=== PATIENT | male | born 1950 | race Caucasian/White ===

== ENCOUNTER 2017-09-26 07:44 | Day surgery (SDC) | payer MEDICARE, OTHER ==
[2017-09-26] MEDS ORDERED: Lactated Ringers 1,000 ML IV SCH (07:45)
[2017-09-26] MEDS ORDERED: Sodium Chloride 0.9% 10 ML Syringe FLUSH PRN (07:45)
[2017-09-26] MEDS ORDERED: Propofol 200 MG/20 ML SDV IV ONE (08:45)
[2017-09-26] MEDS ORDERED: Midazolam 1 MG/ML 2 ML SDV IV ONE (08:45)
--- NOTE | 2017-09-26 09:16 | PCM.OPNOTE ---
- General Post-Op/Procedure Note Date of Surgery/Procedure: 09/26/17 Operative Procedure(s): c scope with bx Findings: transverse and descending colon polyp Pre Op Diagnosis: screening Post-Op Diagnosis: transverse and descending colon polyps Anesthesia Technique: MAC Primary Surgeon: Eduardo Jensen Anesthesia Provider: Marty Hamilton Pathology: transverse and descending colon polyp Complications: None Condition: Good Free Text/Narrative:: see dictation [id number]
--- NOTE | 2017-09-26 13:15 | OR ---
DATE OF OPERATION: 09/26/2017 SURGEON: Eduardo Jensen MD PROCEDURE PERFORMED: Colonoscopy with cold forceps biopsy. PREOPERATIVE DIAGNOSIS: Need for screening C-scope. POSTOPERATIVE DIAGNOSIS: Polyps of the transverse and descending colons. INDICATIONS FOR PROCEDURE: This is a 66-year-old white male who presents for screening colonoscopy. He was offered and accepted same. DESCRIPTION OF OPERATION: After an excellent IV sedation was administered, digital rectal exam was performed. No marked abnormality was noted. Flexible colonoscope was inserted and advanced without difficulty to the cecum. The prep was excellent. The following findings were noted. Ascending colon, unremarkable. Transverse colon, a small polypoid lesion consistent with hyperplasia, biopsied and sent for permanent. Descending colon, a small polyp, biopsied and sent for permanent. Sigmoid, unremarkable. Rectum and anus, unremarkable. Colon was deflated. The scope was removed. The patient tolerated the procedure well and was taken to Recovery in a good condition. Results by letter. /[id number] /[place]
== END 2017-09-26 10:00 | disposition home or self-care (01) ==
LOC: FB.SDS 07:44
PROVIDERS: ATTEND Surgery
DX: Z12.11 Encounter for screening for malignant neoplasm of colon (principal); D12.3 Benign neoplasm of transverse colon; D12.4 Benign neoplasm of descending colon; I10 Essential (primary) hypertension; E78.5 Hyperlipidemia, unspecified; F33.1 Major depressive disorder, recurrent, moderate; F41.1 Generalized anxiety disorder; Z79.899 Other long term (current) drug therapy
CPT/HCPCS: 00812; 45380; 88305; J2250; J2704; J7120

== ENCOUNTER 2018-06-23 10:45 | Inpatient (IN) | payer MEDICARE, BC ==
[2018-06-23] MEDS ORDERED: Meclizine 25 MG Tab PO STA (11:04)
--- NOTE | 2018-06-23 11:05 | EDM.PDOC ---
ED HPI GENERAL MEDICAL PROBLEM - General Stated Complaint: DIZZY,SOB Time Seen by Provider: 06/23/18 10:45 Source of Information: Reports: Patient, Family History Limitations: Reports: No Limitations - History of Present Illness INITIAL COMMENTS - FREE TEXT/NARRATIVE: 67 y.o.w.m with H/O HTN came back from vacation and felt extremely dizzy, unable to ambulate, it is worse when he turns his head to the left or right side. Pt denies trauma, He was drinking heavily while on vacation. No N/V/D no CP or any other acute medical issues. BP 174/79 RR 18 Pulse ox 99% on RA. pulse 61 Temp 36.4 Onset Date: 06/22/18 Onset Time: 18:00 Duration: Day(s):, Getting Worse, Intermittent Location: Reports: Head Severity: Moderate Improves with: Reports: Rest Worsens with: Reports: Movement Context: Reports: Other (Dizzy, unable to ambulate. ) Associated Symptoms: Reports: Malaise - Related Data Allergies Allergy/AdvReac Type Severity Reaction Status Date / Time No Known Allergies Allergy Verified 06/23/18 15:58 Home Meds: Home Meds Aspirin 81 mg PO BEDTIME 09/25/17 [History] Docusate Sodium [Colace] 100 mg PO BEDTIME 09/25/17 [History] Fexofenadine [Arin] 180 mg PO DAILY PRN 09/25/17 [History] Metoprolol Succinate [Toprol Xl] 25 mg PO BEDTIME 09/25/17 [History] Multivitamin with Minerals [Multiple Vitamin] 1 tab PO BEDTIME 09/25/17 [History ] [place]-3/DHA/Epa/Fish Oil [[place] 3 500 Softgel] 1,000 unit PO BEDTIME 09/25/17 [ History] Omeprazole 10 mg PO BEDTIME 09/25/17 [History] Simvastatin [Zocor] 40 mg PO BEDTIME 09/25/17 [History] Venlafaxine HCl [Venlafaxine ER] 150 mg PO BEDTIME 09/25/17 [History] Meloxicam 15 mg PO BEDTIME 06/23/18 [History] Meclizine [Antivert] 25 mg PO QID PRN #30 tablet 06/24/18 [Rx] Past Medical History HEENT History: Reports: None, Impaired Vision Cardiovascular History: Reports: Aneurysm, High Cholesterol, Hypertension, Other (See Below) Other Cardiovascular History: AORTIC VALVE DISORDER; AORTIC ANEURYSM Respiratory History: Reports: None Gastrointestinal History: Reports: None Genitourinary History: Reports: None DATABASE REPORT WRITER History: Reports: None Musculoskeletal History: Reports: Gout Neurological History: Reports: None Psychiatric History: Reports: Addiction, Anxiety Endocrine/Metabolic History: Reports: Obesity/BMI 30+ Hematologic History: Reports: None Immunologic History: Reports: None Oncologic (Cancer) History: Reports: Squamous Cell Carcinoma Dermatologic History: Reports: None - Past Surgical History Head Surgeries/Procedures: Reports: None HEENT Surgical History: Reports: None GI Surgical History: Reports: Colonoscopy Male Surgical History: Reports: None Endocrine Surgical History: Reports: None Neurological Surgical History: Reports: None Musculoskeletal Surgical History: Reports: None Oncologic Surgical History: Reports: None Dermatological Surgical History: Reports: None Social & Family History - Caffeine Use Caffeine Use: Reports: Coffee ED ROS GENERAL - Review of Systems Review Of Systems: See Below Constitutional: Reports: No Symptoms HEENT: Reports: No Symptoms Respiratory: Reports: No Symptoms Cardiovascular: Reports: No Symptoms Endocrine: Reports: No Symptoms GI/Abdominal: Reports: No Symptoms : Reports: No Symptoms Musculoskeletal: Reports: No Symptoms Skin: Reports: No Symptoms Neurological: Reports: Dizziness, Difficulty Walking Psychiatric: Reports: No Symptoms Hematologic/Lymphatic: Reports: No Symptoms Immunologic: Reports: No Symptoms ED EXAM, GENERAL - Physical Exam Exam: See Below Exam Limited By: No Limitations General Appearance: Alert, WD/WN, Obese Eye Exam: Left Eye: Nystagmus (lateral), Bilateral Eye: Normal Inspection Ears: Normal External Exam Ear Exam: Bilateral Ear: Auricle Normal Nose: Normal Inspection, Normal Mucosa, No Blood Throat/Mouth: Normal Lips, Normal Voice, No Airway Compromise, Other (dry mucosal membrane) Head: Atraumatic, Normocephalic Neck: Normal Inspection, Supple, Non-Tender, Full Range of Motion Respiratory/Chest: No Respiratory Distress, Lungs Clear, Normal Breath Sounds, No Accessory Muscle Use, Chest Non-Tender Cardiovascular: Normal Peripheral Pulses, Regular Rate, Rhythm, No Edema, No Gallop, No JVD, No Murmur, No Rub GI/Abdominal: Normal Bowel Sounds, Soft, Non-Tender, No Organomegaly, No Distention, No Abnormal Bruit, No Mass (Male) Exam: Deferred Rectal (Males) Exam: Deferred Back Exam: Normal Inspection, Full Range of Motion, Other Extremities: Normal Inspection, Normal Range of Motion Neurological: Alert, Oriented, CN II-XII Intact, Normal Cognition, Normal Gait Psychiatric: Normal Affect, Normal Mood Skin Exam: Warm, Dry, Intact, Normal Color Lymphatic: No Adenopathy EKG INTERPRETATION EKG Date: 06/23/18 Time: 10:50 Rhythm: NSR Rate (Beats/Min): 56 [place]: Normal P-Wave: Present QRS: Normal ST-T: Normal QT: Normal Comparison: NA - No Prior EKG Course - Vital Signs Text/Narrative:: 67 y.o.w.m with H/O HTN came back from vacation and felt extremely dizzy, unable to ambulate, it is worse when he turns his head to the left or right side. Pt denies trauma, He was drinking heavily while on vacation. No N/V/D no CP or any other acute medical issues. BP 174/79 RR 18 Pulse ox 99% on RA. pulse 61 Temp 36.4 PE: WNWDWM with dizziness, Vertigo, unable to ambulate Labs: Imaging: CT head: NAD, prominent lat ventricles Impression: Vertigo, dehydration, bradycardia, HTN, unable to ambulate. Tx: Antivert, NS, Hydralazine 1.45 pm Consultation: Dr. Buckley, Hospitalist, accepted the pt for admission Reexam: Stable Plan: Admit to [facility]. Last Recorded V/S: Last Vital Signs Temp 36.7 C 06/24/18 12:00 Pulse 52 L 06/24/18 12:00 Resp 20 06/24/18 12:00 BP 150/83 H 06/24/18 12:00 Pulse Ox 96 06/24/18 12:00 - Orders/Labs/Meds Labs: Laboratory Tests 06/23/18 06/23/18 06/23/18 Range/Units 11:10 11:10 11:10 WBC 6.6 (4.5-12.0) X10-3/uL RBC 4.14 L (4.30-5.75) x10(6)uL Hgb 13.7 (11.5-15.5) g/dL Hct 40.9 (30.0-51.3) % MCV 98.9 H (80-96) fL MCH 33.2 (27.7-33.6) pg MCHC 33.6 (32.2-35.4) g/dL RDW 13.8 (11.5-15.5) % Plt Count 225 (125-369) X10(3)uL MPV 8.5 (7.4-10.4) fL Neut % (Auto) 65.1 (46-82) % Lymph % (Auto) 17.6 (13-37) % [place] % (Auto) 10.5 (4-12) % Eos % (Auto) 6 H (1.0-5.0) % Baso % (Auto) 1 (0-2) % Neut # (Auto) 4.3 (1.6-8.3) # Lymph # (Auto) 1.2 (0.6-5.0) # [place] # (Auto) 0.7 (0.0-1.3) # Eos # (Auto) 0.4 (0.0-0.8) # Baso # (Auto) 0.0 (0.0-0.2) # PT 9.4 (8.7-11.1) INR 0.97 (0.89-1.13) Sodium 140 (135-145) mmol/L Potassium 5.1 (3.5-5.3) mmol/L Chloride 106 (100-110) mmol/L Carbon Dioxide 27 (21-32) mmol/L BUN 16 (7-18) mg/dL Creatinine 1.1 (0.70-1.30) mg/dL Est Cr Clr Drug Dosing TNP Estimated GFR (MDRD) > 60 (>60) BUN/Creatinine Ratio 14.5 (9-20) Glucose 102 (80-116) mg/dL Calcium 9.0 (8.6-10.2) mg/dL Troponin I (<0.017-0.056) ng/mL 06/23/18 Range/Units 11:10 WBC (4.5-12.0) X10-3/uL RBC (4.30-5.75) x10(6)uL Hgb (11.5-15.5) g/dL Hct (30.0-51.3) % MCV (80-96) fL MCH (27.7-33.6) pg MCHC (32.2-35.4) g/dL RDW (11.5-15.5) % Plt Count (125-369) X10(3)uL MPV (7.4-10.4) fL Neut % (Auto) (46-82) % Lymph % (Auto) (13-37) % [place] % (Auto) (4-12) % Eos % (Auto) (1.0-5.0) % Baso % (Auto) (0-2) % Neut # (Auto) (1.6-8.3) # Lymph # (Auto) (0.6-5.0) # [place] # (Auto) (0.0-1.3) # Eos # (Auto) (0.0-0.8) # Baso # (Auto) (0.0-0.2) # PT (8.7-11.1) INR (0.89-1.13) Sodium (135-145) mmol/L Potassium (3.5-5.3) mmol/L Chloride (100-110) mmol/L Carbon Dioxide (21-32) mmol/L BUN (7-18) mg/dL Creatinine (0.70-1.30) mg/dL Est Cr Clr Drug Dosing Estimated GFR (MDRD) (>60) BUN/Creatinine Ratio (9-20) Glucose (80-116) mg/dL Calcium (8.6-10.2) mg/dL Troponin I < 0.017 L (<0.017-0.056) ng/mL Meds: Medications Discontinued Medications Generic Name Dose Route Start Last Admin Trade Name Stevenq PRN Reason Stop Dose Admin Acetaminophen 650 mg 06/23/18 13:57 06/23/18 21:17 Tylenol PO 650 mg Q4H PRN Administration Pain (Mild 1-3)/fever Aspirin 81 mg 06/23/18 21:00 06/23/18 21:12 Halfprin PO 81 mg BEDTIME CINDY Administration Docusate Sodium 100 mg 06/23/18 21:00 06/23/18 21:12 Colace PO 100 mg BEDTIME CINDY Administration Enoxaparin Sodium 40 mg 06/23/18 14:00 06/23/18 18:03 Lovenox SUBCUT 40 mg Q24H CINDY Administration Gadoteridol 20 ml 06/24/18 10:00 06/24/18 10:21 Prohance IV 20 ml . DIRECTED CINDY Administration Hydralazine HCl 10 mg 06/23/18 12:45 06/23/18 13:01 Apresoline IVPUSH 06/23/18 12:46 10 mg ONETIME STA Administration Hydroxyzine Pamoate 50 mg 06/23/18 21:38 06/23/18 22:04 Vistaril PO 50 mg Q6H PRN Administration Itching Sodium Chloride 1,000 mls @ 999 mls/hr 06/23/18 11:59 06/23/18 12:12 Normal Saline IV 06/23/18 12:59 999 mls/hr .BOLUS ONE Administration Meclizine HCl 50 mg 06/23/18 11:04 06/23/18 11:09 Antivert PO 06/23/18 11:05 50 mg ONETIME STA Administration Meclizine HCl 25 mg 06/23/18 17:00 06/24/18 09:28 Antivert PO 25 mg QID CINDY Administration Metoprolol Succinate 25 mg 06/23/18 21:00 06/23/18 21:13 Toprol Xl PO 25 mg BEDTIME CINDY Administration Non-Formulary Medication 10 mg 06/24/18 09:00 Omeprazole [Omeprazole] PO DAILY CINDY Ondansetron HCl 4 mg 06/23/18 13:57 Zofran Odt PO Q4H PRN nausea, able to take PO Ondansetron HCl 4 mg 06/23/18 13:57 Zofran IV Q4H PRN Nausea/Vomiting Pantoprazole Sodium 40 mg 06/23/18 22:00 06/23/18 22:04 Protonix PO 40 mg QPM@2100 CINDY Administration Simvastatin 40 mg 06/23/18 21:00 06/23/18 21:13 Zocor PO 40 mg BEDTIME CINDY Administration Sodium Chloride 10 ml 06/23/18 13:57 Saline Flush FLUSH ASDIRECTED PRN Keep Vein Open Venlafaxine HCl 150 mg 06/23/18 21:00 06/23/18 22:04 Effexor Xr PO 150 mg BEDTIME CINDY Administration Departure - Departure Time of Disposition: 16:00 Disposition: Admitted As Inpatient 65 Condition: Fair Clinical Impression: Vertigo
[2018-06-23] MEDS ORDERED: Sodium Chloride 0.9% 1,000 ML IV ONE (11:59)
[2018-06-23] MEDS ORDERED: hydrALAZINE 20 MG/ML SDV IVPUSH STA (12:45)
[2018-06-23] MEDS ORDERED: Ondansetron 4 MG/2 ML SDV IV PRN (13:57)
[2018-06-23] MEDS ORDERED: Sodium Chloride 0.9% 10 ML Syringe FLUSH PRN (13:57)
[2018-06-23] MEDS ORDERED: Ondansetron 4 MG Tab.DIS PO PRN (13:57)
[2018-06-23] MEDS ORDERED: Acetaminophen 325 MG Tab PO PRN (13:57)
[2018-06-23] MEDS ORDERED: Enoxaparin 40 MG/0.4 ML Syringe SUBCUT SCH (14:00)
--- NOTE | 2018-06-23 15:38 | PCM.HP ---
H&P History of Present Illness - General Date of Service: 06/23/18 Admit Problem/Dx: Admission Diagnosis/Problem Admission Diagnosis/Problem Nystagmus Source of Information: Patient, Family, Old Records, Provider History Limitations: Reports: No Limitations - History of Present Illness Initial Comments - Free Text/Narative: Patient is a 67-year-old male who has been in very good health up until last night, the night prior to admission, when he just didn't feel himself. He felt like he was more off-balance than usual. He felt like he was going to fall over. He felt lightheaded and dizzy. He did not feel like she was going to pass out. 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 He went to bed and this morning woke up feeling fine but when he went to get out of bed and to go to the bathroom he again felt fuzzy and lightheaded like he was going to fall over. He continued to feel off all morning and finally came into the emergency department for further evaluation. He's had no headache, no chest pain or shortness of breath, no nausea or vomiting with this, no diarrhea. It doesn't really feel like the room is spinning around him. He has noticed a little pain in his left shoulder on and off for the past couple of days but that has not really been associated with the dizziness. He's had a stiff neck for about the last 18 months to wear it when he turns very far to either side he has discomfort in his neck but this is not new and has not changed. He's had no colds or coughs within the last couple of weeks but last week did have a granddaughter who lives with him sick with a viral pharyngitis. He presented to the emergency department where he was found to have horizontal nystagmus and a blood pressure in the 170s systolic. He was given a dose of hydralazine which brought his pressure down nicely into the 140s but did not change his symptoms at all. Head CT was negative. I was asked to admit the patient for further evaluation and treatment. The patient has been doing a lot of shoveling over the past 3 days and hasn't had any symptoms of dizziness, lightheadedness, or chest pain or shortness of breath with this. Past medical history: #1 history of thoracic aortic aneurysm with ascending aortic dilation and mild aortic insufficiency. Follows with Dr. Mari Connor for this. Last echocardiogram 07/31/17 showed ejection fraction 65%, mild aortic regurgitation, dilation of the sinus 43 mm and dilation of the ascending aorta measuring 45 mm. Grade 1 left ventricular diastolic dysfunction. They were told by Dr. Connor that until it gets above 50 that surgery would not be indicated. #2 hypertension #3, hyperlipidemia #4 depression and anxiety #5 alcohol abuse as listed on the patient's problem list from the clinic. The patient denies ever going through treatment. He continues to drink. He does tell me he has been told in the past to stop drinking but has not done so. 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 Patient has residual balance issues and a left foot drag from the neurologic damage done by this episode. 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 He is and his is also a teacher. They live here in [place]. He is a nonsmoker. Drinks 2-3 beers a day and his last drink was on Sunday the . He had no drinks yesterday and hasn't had anything to drink today. He denies any symptoms of alcohol withdrawal or alcohol seizures in the past. He has 2 children, a son who has depression and a daughter who lives with him and his who has a history of addiction, bipolar disorder and ADHD. There are 2 grandchildren also lives with them and they are 12 and 10. Family history: The patient's mother at 93 and a senior living of old age. The patient's father at 87 of a blood infection after he had a boil lanced on his back. He has one brother who has depression. He has 2 sisters with bipolar disorder and one had colon cancer. The other has a history of osteoporosis. - Related Data Allergies/Adverse Reactions: Allergies Allergy/AdvReac Type Severity Reaction Status Date / Time No Known Allergies Allergy Verified 09/26/17 08:20 Home Medications: Home Meds Aspirin 81 mg PO DAILY 09/25/17 [History] Celecoxib 200 mg PO DAILY 09/25/17 [History] Docusate Sodium [Colace] 100 mg PO DAILY 09/25/17 [History] Fexofenadine [Arin] 180 mg PO DAILY PRN 09/25/17 [History] Metoprolol Succinate [Toprol Xl] 25 mg PO DAILY 09/25/17 [History] Multivitamin with Minerals [Multiple Vitamin] 1 tab PO DAILY 09/25/17 [History] Bee-3/DHA/Epa/Fish Oil [Bee 3 500 Softgel] 1,000 unit PO DAILY 09/25/17 [ History] Omeprazole 10 mg PO DAILY 09/25/17 [History] Simvastatin [Zocor] 40 mg PO DAILY 09/25/17 [History] Venlafaxine HCl [Venlafaxine ER] 150 mg PO SUMOWEFR 09/25/17 [History] Past Medical History HEENT History: Reports: None, Impaired Vision Cardiovascular History: Reports: Aneurysm, High Cholesterol, Hypertension, Other (See Below) Other Cardiovascular History: AORTIC VALVE DISORDER; AORTIC ANEURYSM Respiratory History: Reports: None Gastrointestinal History: Reports: None Genitourinary History: Reports: None [employer] History: Reports: None Musculoskeletal History: Reports: Gout Neurological History: Reports: None Psychiatric History: Reports: Addiction, Anxiety Endocrine/Metabolic History: Reports: Obesity/BMI 30+ Hematologic History: Reports: None Immunologic History: Reports: None Oncologic (Cancer) History: Reports: Squamous Cell Carcinoma Dermatologic History: Reports: None - Past Surgical History Head Surgeries/Procedures: Reports: None HEENT Surgical History: Reports: None GI Surgical History: Reports: Colonoscopy Male Surgical History: Reports: None Endocrine Surgical History: Reports: None Neurological Surgical History: Reports: None Musculoskeletal Surgical History: Reports: None Oncologic Surgical History: Reports: None Dermatological Surgical History: Reports: None Social & Family History - Caffeine Use Caffeine Use: Reports: Coffee H&P Review of Systems - Review of Systems: Review Of Systems: ROS reveals no pertinent complaints other than HPI. Exam - Exam Exam: See Below - Vital Signs Vital Signs: Last Vital Signs Temp 36.4 C 06/23/18 10:45 Pulse 61 06/23/18 10:45 Resp 16 06/23/18 13:01 BP 171/87 H 06/23/18 13:01 Pulse Ox 99 06/23/18 10:45 - Exam General: Alert, Oriented, Cooperative HEENT: PERRLA, Conjunctiva Clear, EACs Clear, EOMI, Mucosa Moist & [place], Posterior Pharynx Clear, TMs Clear, Other (horizontal nystagmus present bilaterally and symmetrically. Slow phase is to the right (left beating nystagmus). Doesn't change with head position.) Neck: Supple, Trachea Midline Lungs: Clear to Auscultation, Normal Respiratory Effort Cardiovascular: Regular Rate, Regular Rhythm, Normal S1, Normal S2, Bradycardia GI/Abdominal Exam: Normal Bowel Sounds, Soft, Non-Tender, No Distention Back Exam: Normal Inspection, Full Range of Motion Extremities: No Pedal Edema Neurological: Cranial Nerves Intact, Babinski Absent, Other (Patient has a slight left foot droop and weakness compared to the right which he notes is baseline. He cannot walk heel-to-toe which is also baseline for him. Proprioception intact but unable to stand with eyes closed. ) Neuro Extensive - Mental Status: Alert, Oriented x3, Normal Cognition, Memory Intact - Patient Data Lab Results Last 24 hrs: Laboratory Results - last 24 hr 06/23/18 06/23/18 06/23/18 Range/Units 11:10 11:10 11:10 WBC 6.6 (4.5-12.0) X10-3/uL RBC 4.14 L (4.30-5.75) x10(6)uL Hgb 13.7 (11.5-15.5) g/dL Hct 40.9 (30.0-51.3) % MCV 98.9 H (80-96) fL MCH 33.2 (27.7-33.6) pg MCHC 33.6 (32.2-35.4) g/dL RDW 13.8 (11.5-15.5) % Plt Count 225 (125-369) X10(3)uL MPV 8.5 (7.4-10.4) fL Neut % (Auto) 65.1 (46-82) % Lymph % (Auto) 17.6 (13-37) % [place] % (Auto) 10.5 (4-12) % Eos % (Auto) 6 H (1.0-5.0) % Baso % (Auto) 1 (0-2) % Neut # (Auto) 4.3 (1.6-8.3) # Lymph # (Auto) 1.2 (0.6-5.0) # [place] # (Auto) 0.7 (0.0-1.3) # Eos # (Auto) 0.4 (0.0-0.8) # Baso # (Auto) 0.0 (0.0-0.2) # PT 9.4 (8.7-11.1) INR 0.97 (0.89-1.13) Sodium 140 (135-145) mmol/L Potassium 5.1 (3.5-5.3) mmol/L Chloride 106 (100-110) mmol/L Carbon Dioxide 27 (21-32) mmol/L BUN 16 (7-18) mg/dL Creatinine 1.1 (0.70-1.30) mg/dL Est Cr Clr Drug Dosing TNP Estimated GFR (MDRD) > 60 (>60) BUN/Creatinine Ratio 14.5 (9-20) Glucose 102 (80-116) mg/dL Calcium 9.0 (8.6-10.2) mg/dL Troponin I (<0.017-0.056) ng/mL 06/23/18 Range/Units 11:10 WBC (4.5-12.0) X10-3/uL RBC (4.30-5.75) x10(6)uL Hgb (11.5-15.5) g/dL Hct (30.0-51.3) % MCV (80-96) fL MCH (27.7-33.6) pg MCHC (32.2-35.4) g/dL RDW (11.5-15.5) % Plt Count (125-369) X10(3)uL MPV (7.4-10.4) fL Neut % (Auto) (46-82) % Lymph % (Auto) (13-37) % [place] % (Auto) (4-12) % Eos % (Auto) (1.0-5.0) % Baso % (Auto) (0-2) % Neut # (Auto) (1.6-8.3) # Lymph # (Auto) (0.6-5.0) # [place] # (Auto) (0.0-1.3) # Eos # (Auto) (0.0-0.8) # Baso # (Auto) (0.0-0.2) # PT (8.7-11.1) INR (0.89-1.13) Sodium (135-145) mmol/L Potassium (3.5-5.3) mmol/L Chloride (100-110) mmol/L Carbon Dioxide (21-32) mmol/L BUN (7-18) mg/dL Creatinine (0.70-1.30) mg/dL Est Cr Clr Drug Dosing Estimated GFR (MDRD) (>60) BUN/Creatinine Ratio (9-20) Glucose (80-116) mg/dL Calcium (8.6-10.2) mg/dL Troponin I < 0.017 L (<0.017-0.056) ng/mL Result Diagrams: 06/23/18 11:10 06/23/18 11:10 - Problem List (1) Nystagmus SNOMED Code(s): 200318 ICD Code: H55.00 - UNSPECIFIED NYSTAGMUS Status: Acute Current Visit: Yes Problem Details: Jerk nystagmus with jerk beat to the left. Possible etiologies would include peripheral vestibular lesions or a central lesion. Given the recent exposure to a viral illness, certainly possible this is a viral neuritis. I would like to get an MRI in the morning to rule out anything more serious and for the time being will treat symptoms with meclizine which was very effective for the patient's symptoms in the emergency department. (2) Hypertension SNOMED Code(s): 14559480 ICD Code: I10 - ESSENTIAL (PRIMARY) HYPERTENSION Status: Acute Current Visit: Yes Problem Details: Although blood pressure was quite high when patient presented, it's now in the 140s systolic. Orthostatics showed a blood pressure of 145/87 lying, 147/84 sitting, 149/92 standing. Pulses were 52, 56, and 66 respectively. Continue home dose beta yaima and add OLIVER inhibitor if needed for better blood pressure control. (3) Depression with anxiety SNOMED Code(s): 67846910, 198822154 ICD Code: F41.8 - OTHER SPECIFIED ANXIETY DISORDERS Status: Acute Current Visit: Yes Problem Details: Continue home meds. (4) History of alcohol abuse SNOMED Code(s): 976563432 ICD Code: Z87.898 - PERSONAL HISTORY OF OTHER SPECIFIED CONDITIONS Status: Acute Current Visit: Yes Problem Details: Encouraged patient to stop drinking. He does have a chronic fine tremor of the hands which I feel would be better assessed the patient had not had any alcohol consumption for a couple of weeks to see if this might resolve. Monitor for symptoms of withdrawal. (5) DVT prophylaxis SNOMED Code(s): 693708616, 788975013 ICD Code: [id number] - Status: Acute Current Visit: Yes Problem Details: SCDs, Lovenox. Problem List Initiated/Reviewed/Updated: Yes Orders Last 24hrs: Active Orders 24 hr Category Date Time Status Patient Status [ADT] Routine ADT 06/23/18 13:57 Active Height and Weight [RC] DAILY Care 06/23/18 13:57 Active Intake and Output [RC] QSHIFT Care 06/23/18 13:58 Active Notify Provider Vital Signs [RC] ASDIRECTED Care 06/23/18 13:58 Active Orthostatic Vital Signs [RC] ASDIRECTED Care 06/23/18 15:21 Ordered Oxygen Therapy [RC] PRN Care 06/23/18 13:57 Active Up With Assistance [RC] ASDIRECTED Care 06/23/18 13:57 Active VTE/DVT Education [RC] Per Unit Routine Care 06/23/18 13:57 Active Vital Signs [RC] Q4H Care 06/23/18 13:57 Active 2 Gram Sodium Diet [DIET] Diet 06/23/18 Breakfast Ordered Consistent Carbohydrate Diet [DIET] Diet 06/23/18 Breakfast Ordered CXR [Chest 1V Frontal] [CR] Stat Exams 06/23/18 10:58 Taken Head wo Cont [CT] Stat Exams 06/23/18 11:58 Taken CBC WITH AUTO DIFF [HEME] AM Lab 06/24/18 05:11 Ordered COMPREHENSIVE METABOLIC PN,CMP [CHEM] AM Lab 06/24/18 05:11 Ordered Acetaminophen [Tylenol] Med 06/23/18 13:57 Active 650 mg PO Q4H PRN Enoxaparin [Lovenox] Med 06/23/18 14:00 Active 40 mg SUBCUT Q24H Ondansetron [Zofran ODT] Med 06/23/18 13:57 Active 4 mg PO Q4H PRN Ondansetron [Zofran] Med 06/23/18 13:57 Active 4 mg IV Q4H PRN Sodium Chloride 0.9% [Saline Flush] Med 06/23/18 13:57 Active 10 ml FLUSH ASDIRECTED PRN Antiembolic Hose [OM.PC] Per Unit Routine Oth 06/23/18 13:58 Ordered Peripheral IV Insertion Adult [OM.PC] Routine Oth 06/23/18 13:57 Ordered Sequential Compression Device [OM.PC] Per Unit Routine Oth 06/23/18 13:58 Ordered EKG 12 Lead [EK] Routine Ther 06/23/18 11:04 Ordered Medication Orders Acetaminophen (Tylenol) 650 mg PO Q4H PRN PRN Reason: Pain (Mild 1-3)/fever Enoxaparin Sodium (Lovenox) 40 mg SUBCUT Q24H CINDY Ondansetron HCl (Zofran Odt) 4 mg PO Q4H PRN PRN Reason: nausea, able to take PO Ondansetron HCl (Zofran) 4 mg IV Q4H PRN PRN Reason: Nausea/Vomiting Sodium Chloride (Saline Flush) 10 ml FLUSH ASDIRECTED PRN PRN Reason: Keep Vein Open Assessment/Plan Comment:: Status discussed with the patient and his at length. At this point, if the patient did have his heart stop beating or he were to stop breathing, he would want CPR done to try to resuscitate him. Thus the patient is full code.
[2018-06-23] MEDS: Meclizine 25 MG Tab PO SCH ×2 (18:03→22:03)
[2018-06-23] MEDS ORDERED: Simvastatin 40 MG Tab PO SCH (21:00)
[2018-06-23] MEDS ORDERED: Aspirin 81 MG Tab.EC PO SCH (21:00)
[2018-06-23] MEDS ORDERED: Metoprolol Succinate 25 MG Tab.ER PO SCH (21:00)
[2018-06-23] MEDS ORDERED: Venlafaxine 150 MG Cap.ER PO SCH (21:00)
[2018-06-23] MEDS ORDERED: Docusate Sodium 100 MG Cap PO SCH (21:00)
[2018-06-23] MEDS ORDERED: Pantoprazole 40 MG Tab.CR PO SCH (22:00)
--- NOTE | 2018-06-24 08:46 | PCM.PN ---
- General Info Date of Service: 06/24/18 Subjective Update: Patient is a 67-year-old male currently on hospital day #2 for vertigo and nystagmus. The patient, after taking meclizine yesterday, had almost complete resolution of his symptoms. He feels almost back to normal. A little bit of a headache last night which went away with Tylenol. No nausea or vomiting, no chest pain or shortness of breath. He was bradycardic into the 40s overnight but no symptoms with this. Pressures continue to run high in the 150 systolic overnight. - Patient Data Vitals - Most Recent: Last Vital Signs Temp 36.4 C 06/24/18 05:30 Pulse 50 L 06/24/18 05:30 Resp 16 06/24/18 05:30 BP 114/84 06/24/18 05:30 Pulse Ox 98 06/24/18 05:30 Orthostatic Blood Pressure [ 149/92 Standing] Orthostatic Blood Pressure [ 147/84 Sitting] Orthostatic Blood Pressure [ 145/87 Supine] Weight - Most Recent: 103.646 kg I&O - Last 24 Hours: Intake & Output 06/23/18 06/24/18 06/24/18 22:59 06:59 14:59 Intake Total 600 Output Total 1225 200 Balance -625 -200 Lab Results Last 24 Hours: Laboratory Results - last 24 hr 06/23/18 06/23/18 06/23/18 Range/Units 11:10 11:10 11:10 WBC 6.6 (4.5-12.0) X10-3/uL RBC 4.14 L (4.30-5.75) x10(6)uL Hgb 13.7 (11.5-15.5) g/dL Hct 40.9 (30.0-51.3) % MCV 98.9 H (80-96) fL MCH 33.2 (27.7-33.6) pg MCHC 33.6 (32.2-35.4) g/dL RDW 13.8 (11.5-15.5) % Plt Count 225 (125-369) X10(3)uL MPV 8.5 (7.4-10.4) fL Neut % (Auto) 65.1 (46-82) % Lymph % (Auto) 17.6 (13-37) % [place] % (Auto) 10.5 (4-12) % Eos % (Auto) 6 H (1.0-5.0) % Baso % (Auto) 1 (0-2) % Neut # (Auto) 4.3 (1.6-8.3) # Lymph # (Auto) 1.2 (0.6-5.0) # [place] # (Auto) 0.7 (0.0-1.3) # Eos # (Auto) 0.4 (0.0-0.8) # Baso # (Auto) 0.0 (0.0-0.2) # PT 9.4 (8.7-11.1) INR 0.97 (0.89-1.13) Sodium 140 (135-145) mmol/L Potassium 5.1 (3.5-5.3) mmol/L Chloride 106 (100-110) mmol/L Carbon Dioxide 27 (21-32) mmol/L BUN 16 (7-18) mg/dL Creatinine 1.1 (0.70-1.30) mg/dL Est Cr Clr Drug Dosing TNP Estimated GFR (MDRD) > 60 (>60) BUN/Creatinine Ratio 14.5 (9-20) Glucose 102 (80-116) mg/dL Calcium 9.0 (8.6-10.2) mg/dL Total Bilirubin (0.1-1.3) mg/dL AST (5-25) IU/L ALT (12-36) U/L Alkaline Phosphatase (56-112) IU/L Troponin I (<0.017-0.056) ng/mL Total Protein (6.0-8.0) g/dL Albumin (3.2-4.6) g/dL Globulin g/dL Albumin/Globulin Ratio 06/23/18 06/24/18 06/24/18 Range/Units 11:10 06:40 06:40 WBC 5.9 (4.5-12.0) X10-3/uL RBC 4.08 L (4.30-5.75) x10(6)uL Hgb 13.2 (11.5-15.5) g/dL Hct 38.7 (30.0-51.3) % MCV 94.8 (80-96) fL MCH 32.4 (27.7-33.6) pg MCHC 34.2 (32.2-35.4) g/dL RDW 14.1 (11.5-15.5) % Plt Count 214 (125-369) X10(3)uL MPV 8.2 (7.4-10.4) fL Neut % (Auto) 58.6 (46-82) % Lymph % (Auto) 21.1 (13-37) % [place] % (Auto) 12.6 H (4-12) % Eos % (Auto) 7 H (1.0-5.0) % Baso % (Auto) 1 (0-2) % Neut # (Auto) 3.5 (1.6-8.3) # Lymph # (Auto) 1.3 (0.6-5.0) # [place] # (Auto) 0.7 (0.0-1.3) # Eos # (Auto) 0.4 (0.0-0.8) # Baso # (Auto) 0.0 (0.0-0.2) # PT (8.7-11.1) INR (0.89-1.13) Sodium 141 (135-145) mmol/L Potassium 4.2 (3.5-5.3) mmol/L Chloride 108 (100-110) mmol/L Carbon Dioxide 25 (21-32) mmol/L BUN 16 (7-18) mg/dL Creatinine 1.0 (0.70-1.30) mg/dL Est Cr Clr Drug Dosing 73.00 Estimated GFR (MDRD) > 60 (>60) BUN/Creatinine Ratio 16.0 (9-20) Glucose 96 (80-116) mg/dL Calcium 8.9 (8.6-10.2) mg/dL Total Bilirubin 0.7 (0.1-1.3) mg/dL AST 25 (5-25) IU/L ALT 40 H (12-36) U/L Alkaline Phosphatase 61 (56-112) IU/L Troponin I < 0.017 L (<0.017-0.056) ng/mL Total Protein 6.4 (6.0-8.0) g/dL Albumin 3.2 (3.2-4.6) g/dL Globulin 3.2 g/dL Albumin/Globulin Ratio 1.0 Med Orders - Current: Current Medications Acetaminophen (Tylenol) 650 mg PO Q4H PRN PRN Reason: Pain (Mild 1-3)/fever Last Admin: 06/23/18 21:17 Dose: 650 mg Aspirin (Halfprin) 81 mg PO BEDTIME [facility] Last Admin: 06/23/18 21:12 Dose: 81 mg Docusate Sodium (Colace) 100 mg PO BEDTIME [facility] Last Admin: 06/23/18 21:12 Dose: 100 mg Enoxaparin Sodium (Lovenox) 40 mg SUBCUT Q24H [facility] Last Admin: 06/23/18 18:03 Dose: 40 mg Hydroxyzine Pamoate (Vistaril) 50 mg PO Q6H PRN PRN Reason: Itching Last Admin: 06/23/18 22:04 Dose: 50 mg Meclizine HCl (Antivert) 25 mg PO QID [facility] Last Admin: 06/23/18 22:03 Dose: 25 mg Metoprolol Succinate (Toprol Xl) 25 mg PO BEDTIME [facility] Last Admin: 06/23/18 21:13 Dose: 25 mg Ondansetron HCl (Zofran Odt) 4 mg PO Q4H PRN PRN Reason: nausea, able to take PO Ondansetron HCl (Zofran) 4 mg IV Q4H PRN PRN Reason: Nausea/Vomiting Pantoprazole Sodium (Protonix) 40 mg PO QPM@2100 [facility] Last Admin: 06/23/18 22:04 Dose: 40 mg Simvastatin (Zocor) 40 mg PO BEDTIME [facility] Last Admin: 06/23/18 21:13 Dose: 40 mg Sodium Chloride (Saline Flush) 10 ml FLUSH ASDIRECTED PRN PRN Reason: Keep Vein Open Venlafaxine HCl (Effexor Xr) 150 mg PO BEDTIME [facility] Last Admin: 06/23/18 22:04 Dose: 150 mg Discontinued Medications Hydralazine HCl (Apresoline) 10 mg IVPUSH ONETIME STA Stop: 06/23/18 12:46 Last Admin: 06/23/18 13:01 Dose: 10 mg Sodium Chloride (Normal Saline) 1,000 mls @ 999 mls/hr IV .BOLUS ONE Stop: 06/23/18 12:59 Last Admin: 06/23/18 12:12 Dose: 999 mls/hr Meclizine HCl (Antivert) 50 mg PO ONETIME STA Stop: 06/23/18 11:05 Last Admin: 06/23/18 11:09 Dose: 50 mg Non-Formulary Medication (Omeprazole [Omeprazole]) 10 mg PO DAILY CINDY - Exam General: Alert, Oriented, Cooperative, No Acute Distress HEENT: Pupils Equal, Pupils Reactive, EOMI, Other (Continues to have persistent horizontal jerk nystagmus but much milder than yesterday.) Lungs: Clear to Auscultation, Normal Respiratory Effort Cardiovascular: Regular Rate, Regular Rhythm, No Murmurs GI/Abdominal Exam: Normal Bowel Sounds, Soft, Non-Tender Extremities: No Pedal Edema Psy/Mental Status: Alert - Problem List & Annotations (1) Nystagmus SNOMED Code(s): 342298 Code(s): H55.00 - UNSPECIFIED NYSTAGMUS Status: Acute Current Visit: Yes Annotation/Comment:: Jerk nystagmus with jerk beat to the left. Anticipate discharge after MRI results this afternoon as given the improvement in his symptoms I suspect this was viral mediated. It's also possible that he's had mild nystagmus since his encephalitis and this is really not a new finding for him but has never been mentioned before. (2) Hypertension SNOMED Code(s): 12355137 Code(s): I10 - ESSENTIAL (PRIMARY) HYPERTENSION Status: Acute Current Visit: Yes Annotation/Comment:: Would recommend adding OLIVER inhibitor therapy for better blood pressure control the outpatient setting. This was discussed with patient and his at length. (3) Depression with anxiety SNOMED Code(s): 82102536, 433664064 Code(s): F41.8 - OTHER SPECIFIED ANXIETY DISORDERS Status: Acute Current Visit: Yes Annotation/Comment:: Continue home meds. (4) History of alcohol abuse SNOMED Code(s): 399554789 Code(s): Z87.898 - PERSONAL HISTORY OF OTHER SPECIFIED CONDITIONS Status: Acute Current Visit: Yes Annotation/Comment:: Encouraged patient to stop drinking. Monitor for symptoms of withdrawal. (5) DVT prophylaxis SNOMED Code(s): 870566966, 320974170 Code(s): SMK4715 - Status: Acute Current Visit: Yes Annotation/Comment :: SCDs, Lovenox. - Problem List Review Problem List Initiated/Reviewed/Updated: Yes - My Orders Last 24 Hours: My Active Orders 06/23/18 13:57 Patient Status [ADT] Routine Height and Weight [RC] 06 Oxygen Therapy [RC] PRN Up With Assistance [RC] 09,13,17,21 Vital Signs [RC] 04,08,12,16,20,00 Acetaminophen [Tylenol] 650 mg PO Q4H PRN Ondansetron [Zofran ODT] 4 mg PO Q4H PRN Ondansetron [Zofran] 4 mg IV Q4H PRN Sodium Chloride 0.9% [Saline Flush] 10 ml FLUSH ASDIRECTED PRN Peripheral IV Insertion Adult [OM.PC] Routine 06/23/18 13:58 Intake and Output [RC] 06,14,22 Notify Provider Vital Signs [RC] ASDIRECTED Antiembolic Hose [OM.PC] Per Unit Routine Sequential Compression Device [OM.PC] Per Unit Routine 06/23/18 14:00 Enoxaparin [Lovenox] 40 mg SUBCUT Q24H 06/23/18 15:21 Orthostatic Vital Signs [RC] ASDIRECTED 06/23/18 15:51 Code Status [Resuscitation Status] Routine 06/23/18 17:00 Meclizine [Antivert] 25 mg PO QID 06/23/18 21:00 Aspirin [Halfprin] 81 mg PO BEDTIME Docusate Sodium [Colace] 100 mg PO BEDTIME Metoprolol Succinate [Toprol XL] 25 mg PO BEDTIME Simvastatin [Zocor] 40 mg PO BEDTIME Venlafaxine [Effexor XR] 150 mg PO BEDTIME 06/23/18 22:00 Pantoprazole [ProTONIX] 40 mg PO QPM@2100 06/24/18 05:11 Brain w wo Cont [MR] AM - Plan Plan:: Status discussed with the patient and his at length on admission. At this point, if the patient did have his heart stop beating or he were to stop breathing, he would want CPR done to try to resuscitate him. Thus the patient is full code.
[2018-06-24] MEDS ORDERED: Non-Formulary Medication 1 Each (Omeprazole [Omeprazole] 10 MG) PO SCH (09:00)
[2018-06-24] MEDS: Meclizine 25 MG Tab PO SCH (09:28)
[2018-06-24] MEDS ORDERED: Gadoteridol 279.3 MG/ML 20 ML SDV IV SCH (10:00)
--- NOTE | 2018-06-24 10:33 | CR ---
INDICATION: Dizzy. CHEST: A single AP upright view of the chest was obtained portable, 06/23/18 - no comparisons. The heart appeared enlarged. The aorta is tortuous. Overlying EKG leads are noted. An active infiltrate or effusion was not identified. There is evidence of exogenous obesity. IMPRESSION: 1. No acute process. 2. ASHD. 3. Exogenous obesity. MTDD
--- NOTE | 2018-06-24 12:55 | PCM.DCSUM1 ---
Discharge Summary - Hospital Course Free Text/Narrative:: Date of admission: 06/23/18 Date of discharge: 06/24/18 Admission diagnosis: Vertigo with horizontal jerk nystagmus Discharge diagnosis: Same Consults: None Procedures: Head CT was negative MRI done the day of discharge showed mild chronic small vessel ischemic change and appropriate for age generalized parenchymal volume loss. No acute intracranial findings identified. History of present illness: Patient is a 67-year-old male who has been in very good health up until the night prior to admission, when he just didn't feel himself. He felt like he was more off-balance than usual. He felt like he was going to fall over. He felt lightheaded and dizzy. He did not feel like she was going to pass out. 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 He went to bed and am of admission woke up feeling fine but when he went to get out of bed and to go to the bathroom he again felt fuzzy and lightheaded like he was going to fall over. He continued to feel off all morning and finally came into the emergency department for further evaluation. He's had no headache, no chest pain or shortness of breath, no nausea or vomiting with this, no diarrhea. It doesn't really feel like the room is spinning around him. He has noticed a little pain in his left shoulder on and off for the past couple of days but that has not really been associated with the dizziness. He's had a stiff neck for about the last 18 months to wear it when he turns very far to either side he has discomfort in his neck but this is not new and has not changed. He's had no colds or coughs within the last couple of weeks but last week did have a granddaughter who lives with him sick with a viral pharyngitis. He presented to the emergency department where he was found to have horizontal nystagmus and a blood pressure in the 170s systolic. He was given a dose of hydralazine which brought his pressure down nicely into the 140s but did not change his symptoms at all. Head CT was negative. I was asked to admit the patient for further evaluation and treatment. Past medical history: #1 history of thoracic aortic aneurysm with ascending aortic dilation and mild aortic insufficiency. Follows with Dr. Mari Connor for this. Last echocardiogram 07/31/17 showed ejection fraction 65%, mild aortic regurgitation, dilation of the sinus 43 mm and dilation of the ascending aorta measuring 45 mm. Grade 1 left ventricular diastolic dysfunction. They were told by Dr. Connor that until it gets above 50 that surgery would not be indicated. #2 hypertension #3, hyperlipidemia #4 depression and anxiety #5 alcohol abuse as listed on the patient's problem list from the clinic. The patient denies ever going through treatment. He continues to drink. He does tell me he has been told in the past to stop drinking but has not done so. 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 Patient has residual balance issues and a left foot drag from the neurologic damage done by this episode. #7 gout Hospital course: Patient's symptoms almost completely resolved with meclizine. He was stable throughout hospitalization. Of note blood pressures did run a little high 150s systolic and in the 40s HR overnight. Please see progress note for condition on the day of discharge from the same date. Diagnosis: Stroke: No - Discharge Data Discharge Date: 06/24/18 Discharge Disposition: Home, Self-Care 01 Condition: Stable - Discharge Diagnosis/Problem(s) (1) Nystagmus SNOMED Code(s): 679870 ICD Code: H55.00 - UNSPECIFIED NYSTAGMUS Status: Acute Current Visit: Yes Problem Details: Jerk nystagmus with jerk beat to the left. Negative MRI. I suspect this was viral mediated. It's also possible that he's had mild nystagmus since his encephalitis and this is really not a new finding for him but has never been mentioned before. D/C on meclizine prn for vertigo. (2) Hypertension SNOMED Code(s): 28018313 ICD Code: I10 - ESSENTIAL (PRIMARY) HYPERTENSION Status: Acute Current Visit: Yes Problem Details: Would recommend adding OLIVER inhibitor therapy for better blood pressure control the outpatient setting. This was discussed with patient and his at length. (3) Depression with anxiety SNOMED Code(s): 85961232, 528833403 ICD Code: F41.8 - OTHER SPECIFIED ANXIETY DISORDERS Status: Acute Current Visit: Yes Problem Details: Continue home meds. (4) History of alcohol abuse SNOMED Code(s): 965162665 ICD Code: Z87.898 - PERSONAL HISTORY OF OTHER SPECIFIED CONDITIONS Status: Acute Current Visit: Yes Problem Details: Encouraged patient to stop drinking. Monitor for symptoms of withdrawal. (5) DVT prophylaxis SNOMED Code(s): 159418476, 605677319 ICD Code: CQN5267 - Status: Acute Current Visit: Yes Problem Details: SCDs, Lovenox. - Patient Instructions Diet: Heart Healthy Diet, Low Sodium Activity: As Tolerated Driving: Do Not Drive (until vertigo has been resolved for 24 hours) Other/Special Instructions: You were admitted to the hospital with the diagnosis of nystagmus and vertigo. This was likely caused by a virus. You had a head MRI was negative. You can take meclizine as needed up to 4 times a day for your symptoms. Your blood pressure was high in the hospital. I would recommend you start on lisinopril 5 mg daily for this. You can discuss this with your regular provider. - Discharge Plan *PRESCRIPTION DRUG MONITORING PROGRAM REVIEWED*: Not Applicable Prescriptions/Med Rec: Meclizine [Antivert] 25 mg PO QID PRN #30 tablet PRN Reason: vertigo Home Medications: Home Meds Aspirin 81 mg PO BEDTIME 09/25/17 [History] Docusate Sodium [Colace] 100 mg PO BEDTIME 09/25/17 [History] Fexofenadine [Arin] 180 mg PO DAILY PRN 09/25/17 [History] Metoprolol Succinate [Toprol Xl] 25 mg PO BEDTIME 09/25/17 [History] Multivitamin with Minerals [Multiple Vitamin] 1 tab PO BEDTIME 09/25/17 [History ] Starbuck-3/DHA/Epa/Fish Oil [Starbuck 3 500 Softgel] 1,000 unit PO BEDTIME 09/25/17 [ History] Omeprazole 10 mg PO BEDTIME 09/25/17 [History] Simvastatin [Zocor] 40 mg PO BEDTIME 09/25/17 [History] Venlafaxine HCl [Venlafaxine ER] 150 mg PO BEDTIME 09/25/17 [History] Meloxicam 15 mg PO BEDTIME 06/23/18 [History] Meclizine [Antivert] 25 mg PO QID PRN #30 tablet 06/24/18 [Rx] Forms: ED Department Discharge Referrals: Garrison Browning MD [Primary Care Provider] - - Discharge Summary/Plan Comment DC Time >30 min.: Yes - Patient Data Vitals - Most Recent: Last Vital Signs Temp 36.7 C 06/24/18 12:00 Pulse 52 L 06/24/18 12:00 Resp 20 06/24/18 12:00 BP 150/83 H 06/24/18 12:00 Pulse Ox 96 06/24/18 12:00 Orthostatic Blood Pressure [ 149/92 Standing] Orthostatic Blood Pressure [ 147/84 Sitting] Orthostatic Blood Pressure [ 145/87 Supine] Weight - Most Recent: 103.646 kg I&O - Last 24 hours: Intake & Output 06/23/18 06/24/18 06/24/18 22:59 06:59 14:59 Intake Total 600 Output Total 1225 200 Balance -625 -200 Lab Results - Last 24 hrs: Laboratory Results - last 24 hr 06/24/18 06/24/18 Range/Units 06:40 06:40 WBC 5.9 (4.5-12.0) X10-3/uL RBC 4.08 L (4.30-5.75) x10(6)uL Hgb 13.2 (11.5-15.5) g/dL Hct 38.7 (30.0-51.3) % MCV 94.8 (80-96) fL MCH 32.4 (27.7-33.6) pg MCHC 34.2 (32.2-35.4) g/dL RDW 14.1 (11.5-15.5) % Plt Count 214 (125-369) X10(3)uL MPV 8.2 (7.4-10.4) fL Neut % (Auto) 58.6 (46-82) % Lymph % (Auto) 21.1 (13-37) % [place] % (Auto) 12.6 H (4-12) % Eos % (Auto) 7 H (1.0-5.0) % Baso % (Auto) 1 (0-2) % Neut # (Auto) 3.5 (1.6-8.3) # Lymph # (Auto) 1.3 (0.6-5.0) # [place] # (Auto) 0.7 (0.0-1.3) # Eos # (Auto) 0.4 (0.0-0.8) # Baso # (Auto) 0.0 (0.0-0.2) # Sodium 141 (135-145) mmol/L Potassium 4.2 (3.5-5.3) mmol/L Chloride 108 (100-110) mmol/L Carbon Dioxide 25 (21-32) mmol/L BUN 16 (7-18) mg/dL Creatinine 1.0 (0.70-1.30) mg/dL Est Cr Clr Drug Dosing 73.00 mL/min Estimated GFR (MDRD) > 60 (>60) BUN/Creatinine Ratio 16.0 (9-20) Glucose 96 (80-116) mg/dL Calcium 8.9 (8.6-10.2) mg/dL Total Bilirubin 0.7 (0.1-1.3) mg/dL AST 25 (5-25) IU/L ALT 40 H (12-36) U/L Alkaline Phosphatase 61 (56-112) IU/L Total Protein 6.4 (6.0-8.0) g/dL Albumin 3.2 (3.2-4.6) g/dL Globulin 3.2 g/dL Albumin/Globulin Ratio 1.0 Med Orders - Current: Current Medications Acetaminophen (Tylenol) 650 mg PO Q4H PRN PRN Reason: Pain (Mild 1-3)/fever Last Admin: 06/23/18 21:17 Dose: 650 mg Aspirin (Halfprin) 81 mg PO BEDTIME [facility] Last Admin: 06/23/18 21:12 Dose: 81 mg Docusate Sodium (Colace) 100 mg PO BEDTIME [facility] Last Admin: 06/23/18 21:12 Dose: 100 mg Enoxaparin Sodium (Lovenox) 40 mg SUBCUT Q24H [facility] Last Admin: 06/23/18 18:03 Dose: 40 mg Hydroxyzine Pamoate (Vistaril) 50 mg PO Q6H PRN PRN Reason: Itching Last Admin: 06/23/18 22:04 Dose: 50 mg Meclizine HCl (Antivert) 25 mg PO QID [facility] Last Admin: 06/24/18 09:28 Dose: 25 mg Metoprolol Succinate (Toprol Xl) 25 mg PO BEDTIME [facility] Last Admin: 06/23/18 21:13 Dose: 25 mg Ondansetron HCl (Zofran Odt) 4 mg PO Q4H PRN PRN Reason: nausea, able to take PO Ondansetron HCl (Zofran) 4 mg IV Q4H PRN PRN Reason: Nausea/Vomiting Pantoprazole Sodium (Protonix) 40 mg PO QPM@2100 [facility] Last Admin: 06/23/18 22:04 Dose: 40 mg Simvastatin (Zocor) 40 mg PO BEDTIME [facility] Last Admin: 06/23/18 21:13 Dose: 40 mg Sodium Chloride (Saline Flush) 10 ml FLUSH ASDIRECTED PRN PRN Reason: Keep Vein Open Venlafaxine HCl (Effexor Xr) 150 mg PO BEDTIME [facility] Last Admin: 06/23/18 22:04 Dose: 150 mg Discontinued Medications Gadoteridol (Prohance) 20 ml IV . DIRECTED [facility] Last Admin: 06/24/18 10:21 Dose: 20 ml Hydralazine HCl (Apresoline) 10 mg IVPUSH ONETIME STA Stop: 06/23/18 12:46 Last Admin: 06/23/18 13:01 Dose: 10 mg Sodium Chloride (Normal Saline) 1,000 mls @ 999 mls/hr IV .BOLUS ONE Stop: 06/23/18 12:59 Last Admin: 06/23/18 12:12 Dose: 999 mls/hr Meclizine HCl (Antivert) 50 mg PO ONETIME STA Stop: 06/23/18 11:05 Last Admin: 06/23/18 11:09 Dose: 50 mg Non-Formulary Medication (Omeprazole [Omeprazole]) 10 mg PO DAILY [facility]
== END 2018-06-24 13:45 | disposition home or self-care (01) | DRG 125 ==
LOC: FB.ED 10:45 → FB.MS 13:57
PROVIDERS: ADMIT Family Medicine; ATTEND Family Medicine
DX: R42 Dizziness and giddiness (principal); H55.09 Other forms of nystagmus; I10 Essential (primary) hypertension; F41.9 Anxiety disorder, unspecified; E78.00 Pure hypercholesterolemia, unspecified; E66.9 Obesity, unspecified; E86.0 Dehydration; R00.1 Bradycardia, unspecified; H54.7 Unspecified visual loss; E78.5 Hyperlipidemia, unspecified; M10.9 Gout, unspecified; R53.81 Other malaise; I71.9 Aortic aneurysm of unspecified site, without rupture; R26.2 Difficulty in walking, not elsewhere classified; R06.02 Shortness of breath; F10.10 Alcohol abuse, uncomplicated; I71.2 Thoracic aortic aneurysm, without rupture; I35.1 Nonrheumatic aortic (valve) insufficiency; F41.8 Other specified anxiety disorders; Z79.899 Other long term (current) drug therapy; Z85.828 Personal history of other malignant neoplasm of skin; Z79.82 Long term (current) use of aspirin
CPT/HCPCS: 36415; 70450; 71045; 80048; 84484; 85025; 85610; 93005; 96361; 96374; 99284; A9270; J0360; J7030; 70553; 80053; A9579; J1650

== ENCOUNTER 2020-07-30 07:51 | Emergency (ER) | payer MEDICARE ==
[2020-07-30] MEDS ORDERED: Sodium Chloride 0.9% 10 ML Syringe FLUSH PRN (08:13)
--- NOTE | 2020-07-30 08:38 | EDM.PDOC ---
ED HPI GENERAL MEDICAL PROBLEM - General Stated Complaint: slurred speech Time Seen by Provider: 07/30/20 08:05 Source of Information: Reports: Patient, Family History Limitations: Reports: No Limitations - History of Present Illness INITIAL COMMENTS - FREE TEXT/NARRATIVE: Patient is a 69 YO M who presented to the ED because of right arm and hand weakness last night at 2030. At about 0730 this morning the was talking to him and noticed a left facial droop and slurred speech. There is no headache,dizziness, double or blurry vision. There is no fever,chills, nausea, vomiting. He has a history HTN and dyslipidemia. - Related Data Allergies Allergy/AdvReac Type Severity Reaction Status Date / Time No Known Allergies Allergy Verified 06/23/18 15:58 Home Meds: Home Meds Aspirin 81 mg PO BEDTIME 09/25/17 [History] Docusate Sodium [Colace] 100 mg PO BEDTIME 09/25/17 [History] Fexofenadine [Arin] 180 mg PO DAILY PRN 09/25/17 [History] Metoprolol Succinate [Toprol Xl] 25 mg PO BEDTIME 09/25/17 [History] Multivitamin with Minerals [Multiple Vitamin] 1 tab PO BEDTIME 09/25/17 [History] Ubly-3/DHA/Epa/Fish Oil [Ubly 3 500 Softgel] 1,000 unit PO BEDTIME 09/25/17 [History] Omeprazole 10 mg PO BEDTIME 09/25/17 [History] Simvastatin [Zocor] 40 mg PO BEDTIME 09/25/17 [History] Venlafaxine HCl [Venlafaxine ER] 150 mg PO BEDTIME 09/25/17 [History] Meloxicam 15 mg PO BEDTIME 06/23/18 [History] Meclizine [Antivert] 25 mg PO QID PRN #30 tablet 06/24/18 [Rx] Past Medical History HEENT History: Reports: None, Impaired Vision Cardiovascular History: Reports: Aneurysm, High Cholesterol, Hypertension, Other (See Below) Other Cardiovascular History: AORTIC VALVE DISORDER; AORTIC ANEURYSM Respiratory History: Reports: None Gastrointestinal History: Reports: None Genitourinary History: Reports: None QUALITY TECHNICIAN History: Reports: None Musculoskeletal History: Reports: Gout Neurological History: Reports: None Other Neuro History: encephalitis, myelitis, encephalomyelitis Psychiatric History: Reports: Addiction, Anxiety Endocrine/Metabolic History: Reports: Obesity/BMI 30+ Hematologic History: Reports: None Other Hematologic History: Pt had West Nile Virus 12 years and was treated in [place] for 65 days. Immunologic History: Reports: None Oncologic (Cancer) History: Reports: Squamous Cell Carcinoma Dermatologic History: Reports: None Other Dermatologic History: actinic keratosis - Past Surgical History Head Surgeries/Procedures: Reports: None HEENT Surgical History: Reports: None GI Surgical History: Reports: Colonoscopy Male Surgical History: Reports: None Endocrine Surgical History: Reports: None Neurological Surgical History: Reports: None Musculoskeletal Surgical History: Reports: None Oncologic Surgical History: Reports: None Dermatological Surgical History: Reports: None Social & Family History - Caffeine Use Caffeine Use: Reports: Coffee ED ROS GENERAL - Review of Systems Review Of Systems: See Below Constitutional: Reports: No Symptoms HEENT: Reports: No Symptoms Respiratory: Reports: No Symptoms Cardiovascular: Reports: No Symptoms Endocrine: Reports: No Symptoms GI/Abdominal: Reports: No Symptoms : Reports: No Symptoms Musculoskeletal: Reports: No Symptoms Skin: Reports: No Symptoms Neurological: Reports: Trouble Speaking, Weakness Psychiatric: Reports: No Symptoms Hematologic/Lymphatic: Reports: No Symptoms ED EXAM, GENERAL - Physical Exam Exam: See Below Exam Limited By: No Limitations General Appearance: Alert Course - Vital Signs Text/Narrative:: Labs/EKG/CXR/Head CT result was discussed with patient and his ASA 324 mg PO x1 Case discussed with Dr Guerra and want patient to be transferred to [place] for further evaluation NIHSS: 1-2 Code status: Full Code Last Recorded V/S: Last Vital Signs Temp 36.9 C 07/30/20 08:00 Pulse 56 L 07/30/20 08:00 Resp 20 07/30/20 08:00 BP 186/88 H 07/30/20 08:00 Pulse Ox 100 07/30/20 08:00 - Orders/Labs/Meds Orders: Active Orders 24 hr Category Date Time Status EKG Documentation Completion [RC] ASDIRECTED Care 07/30/20 08:14 Active Chest 1V Frontal [CR] Stat Exams 07/30/20 08:13 Taken Head wo Cont [CT] Stat Exams 07/30/20 08:00 Taken Aspirin Med 07/30/20 08:54 Stat 324 mg PO NOW STA Sodium Chloride 0.9% [Saline Flush] Med 07/30/20 08:13 Active 10 ml FLUSH ASDIRECTED PRN Saline Lock Insert [OM.PC] Routine Oth 07/30/20 08:13 Ordered EKG 12 Lead [EK] Routine Ther 07/30/20 08:13 Ordered Medication Orders Aspirin (Aspirin 81 Mg Tab.Chew) 324 mg PO NOW STA Stop: 07/30/20 08:55 Sodium Chloride (Sodium Chloride 0.9% 10 Ml Syringe) 10 ml FLUSH ASDIRECTED PRN PRN Reason: Keep Vein Open Labs: Laboratory Tests 07/30/20 07/30/20 07/30/20 Range/Units 08:15 08:15 08:15 WBC 8.6 (3.2-10.1) x10-3/uL RBC 3.98 (3.90-5.90) x10(6)uL Hgb 13.2 (12.9-17.7) g/dL Hct 39.5 (38.3-50.1) % MCV 99.4 H (80.8-98.7) fL MCH 33.2 (27.0-33.3) pg MCHC 33.4 (28.7-35.3) g/dL RDW 15.0 (12.4-15.0) % Plt Count 214 (117-477) x10(3)uL MPV 8.9 (6.7-11.0) fL Neut % (Auto) 63.5 (40.3-71.8) % Lymph % (Auto) 14.4 L (15.8-45.3) % [place] % (Auto) 11.7 (5.5-15.2) % Eos % (Auto) 10.0 H (0.1-6.8) % Baso % (Auto) 0.4 (0.3-3.8) % Neut # (Auto) 5.5 (1.7-6.9) x10-3/uL Lymph # (Auto) 1.2 (0.5-4.5) x10-3/uL [place] # (Auto) 1.0 (0.0-1.2) x10-3/uL Eos # (Auto) 0.9 H (0.0-0.6) x10-3/uL Baso # (Auto) 0.0 (0.0-0.3) x10-3/uL PT 9.7 (9.0-11.1) sec INR 0.89 L (1.00-1.24) APTT 26.7 (24.4-33.2) SECONDS Sodium 142 (135-145) mmol/L Potassium 4.0 (3.5-5.3) mmol/L Chloride 106 (100-110) mmol/L Carbon Dioxide 27 (21-32) mmol/L BUN 23 H (7-18) mg/dL Creatinine 1.1 (0.70-1.30) mg/dL Est Cr Clr Drug Dosing TNP Estimated GFR (MDRD) > 60 (>60) BUN/Creatinine Ratio 20.9 H (9-20) Glucose 114 (80-116) mg/dL Calcium 8.7 (8.6-10.2) mg/dL Total Bilirubin 0.4 (0.1-1.3) mg/dL AST 28 H D (5-25) IU/L ALT 43 H (12-36) U/L Alkaline Phosphatase 81 (56-112) IU/L Troponin I (4.0-60.3) pg/mL Total Protein 7.3 (6.0-8.0) g/dL Albumin 3.8 (3.2-4.6) g/dL Globulin 3.5 g/dL Albumin/Globulin Ratio 1.1 // Range/Units 08:15 WBC (3.2-10.1) x10-3/uL RBC (3.90-5.90) x10(6)uL Hgb (12.9-17.7) g/dL Hct (38.3-50.1) % MCV (80.8-98.7) fL MCH (27.0-33.3) pg MCHC (28.7-35.3) g/dL RDW (12.4-15.0) % Plt Count (117-477) x10(3)uL MPV (6.7-11.0) fL Neut % (Auto) (40.3-71.8) % Lymph % (Auto) (15.8-45.3) % [place] % (Auto) (5.5-15.2) % Eos % (Auto) (0.1-6.8) % Baso % (Auto) (0.3-3.8) % Neut # (Auto) (1.7-6.9) x10-3/uL Lymph # (Auto) (0.5-4.5) x10-3/uL [place] # (Auto) (0.0-1.2) x10-3/uL Eos # (Auto) (0.0-0.6) x10-3/uL Baso # (Auto) (0.0-0.3) x10-3/uL PT (9.0-11.1) sec INR (1.00-1.24) APTT (24.4-33.2) SECONDS Sodium (135-145) mmol/L Potassium (3.5-5.3) mmol/L Chloride (100-110) mmol/L Carbon Dioxide (21-32) mmol/L BUN (7-18) mg/dL Creatinine (0.70-1.30) mg/dL Est Cr Clr Drug Dosing Estimated GFR (MDRD) (>60) BUN/Creatinine Ratio (9-20) Glucose (80-116) mg/dL Calcium (8.6-10.2) mg/dL Total Bilirubin (0.1-1.3) mg/dL AST (5-25) IU/L ALT (12-36) U/L Alkaline Phosphatase (56-112) IU/L Troponin I 12.7 (4.0-60.3) pg/mL Total Protein (6.0-8.0) g/dL Albumin (3.2-4.6) g/dL Globulin g/dL Albumin/Globulin Ratio Meds: Medications Generic Name Dose Route Start Last Admin Trade Name Freq PRN Reason Stop Dose Admin Aspirin 324 mg 07/30/20 08:54 Aspirin 81 Mg Tab.Chew PO 07/30/20 08:55 NOW STA Sodium Chloride 10 ml 07/30/20 08:13 Sodium Chloride 0.9% 10 Ml Syringe FLUSH ASDIRECTED PRN Keep Vein Open Departure - Departure Time of Disposition: 09:00 Disposition: DC/Tfer to Acute Hospital 02 Condition: Good Clinical Impression: CVA (cerebral vascular accident) - Discharge Information Referrals: Garrison Browning MD [Primary Care Provider] - Sepsis Event Note (ED) - Focused Exam Vital Signs: Vital Signs Temp Pulse Resp BP Pulse Ox 07/30/20 08:00 36.9 C 56 L 20 186/88 H 100 - My Orders Last 24 Hours: My Active Orders 07/30/20 08:00 Head wo Cont [CT] Stat 07/30/20 08:13 Chest 1V Frontal [CR] Stat Sodium Chloride 0.9% [Saline Flush] 10 ml FLUSH ASDIRECTED PRN Saline Lock Insert [OM.PC] Routine EKG 12 Lead [EK] Routine 07/30/20 08:14 EKG Documentation Completion [RC] ASDIRECTED 07/30/20 08:54 Aspirin 324 mg PO NOW STA - Assessment/Plan Last 24 Hours: My Active Orders 07/30/20 08:00 Head wo Cont [CT] Stat 07/30/20 08:13 Chest 1V Frontal [CR] Stat Sodium Chloride 0.9% [Saline Flush] 10 ml FLUSH ASDIRECTED PRN Saline Lock Insert [OM.PC] Routine EKG 12 Lead [EK] Routine 07/30/20 08:14 EKG Documentation Completion [RC] ASDIRECTED 07/30/20 08:54 Aspirin 324 mg PO NOW STA
[2020-07-30] MEDS ORDERED: Aspirin 81 MG Tab.Chew PO STA (08:54)
--- NOTE | 2020-07-30 11:28 | CR ---
INDICATION: Slurred speech, weakness. CHEST, ONE VIEW: An AP portal view of the chest was obtained 07/30/20 and compared with 06/23/18. The heart is enlarged. The aorta is tortuous. Overlying EKG leads are noted. Exogenous obesity is noted. An active infiltrate or effusion was not seen. IMPRESSION: No acute process. MTDD
--- NOTE | 2020-08-03 13:36 | PCM.EKG ---
#1 Interpretation EKG Date: 07/30/20 Time: 08:24 Rhythm: NSR Rate (Beats/Min): 50 [place]: Normal P-Wave: Present QRS: Normal ST-T: Normal QT: Normal WI/PQ Interval: prolonged EKG Interpretation Comments: Sinus amina
== END 2020-07-30 09:28 ==
LOC: FB.ED 07:51
DX: I63.9 Cerebral infarction, unspecified (principal); E78.00 Pure hypercholesterolemia, unspecified; I10 Essential (primary) hypertension; M10.9 Gout, unspecified; E66.9 Obesity, unspecified; Z68.38 Body mass index [BMI] 38.0-38.9, adult; Z79.82 Long term (current) use of aspirin; Z79.899 Other long term (current) drug therapy
CPT/HCPCS: 70450; 71045; 80053; 84484; 85025; 85610; 85730; 93005; 99284; 99285; A9270